=== PATIENT | male | born 1970 | race Caucasian/White ===

== ENCOUNTER → 2016-11-07 | Outpatient (CLI) | payer OTHER ==
[~2016-11-07] VITALS: Ht 200.7 cm; Wt 163.6 kg
[~2016-11-07] MED LIST: ASPIR 8181 M1 PO; COZAAR100 MG PO; LOPRESSOR50 MG PO; MAXZIDE 37.5 M1 EACH PO; MEN'S MULTI-VI1 EACH PO; NEURONTIN300 MG PO; VITAJOY2.5 MG PO
== END | disposition home or self-care (01) ==
LOC: AMB 13:48
DX: K57.32 Diverticulitis of large intestine without perforation or abscess without bleeding (principal); K52.9 Noninfective gastroenteritis and colitis, unspecified; K64.8 Other hemorrhoids; D12.2 Benign neoplasm of ascending colon; K62.89 Other specified diseases of anus and rectum; I10 Essential (primary) hypertension; R59.1 Generalized enlarged lymph nodes; E66.9 Obesity, unspecified; G62.9 Polyneuropathy, unspecified; G47.30 Sleep apnea, unspecified; M19.90 Unspecified osteoarthritis, unspecified site; Z79.82 Long term (current) use of aspirin
CPT/HCPCS: 88305; 93005; J2250